=== PATIENT | female | born 1990 | race Caucasian/White ===

== ENCOUNTER 2021-04-03 11:23 | Outpatient (RCR) | payer OTHER, SELFPAY ==
--- NOTE | 2021-04-07 13:54 | PC.NURSE ---
04-03-2021 at [phone] Pt seen as OP for consultation; she and baby seen by Dr. Red on 04-01-2021; mother voicing concerns about slight redness of her breasts, and also some morning pain in both breasts. Pt reports Dr. Red examined baby and also examined mother's breasts and suggested LC consult. Baby born 03-02-2021 at [facility] in [place]; mother has been exclusively breast feeding; milk is is; baby's assessment at DrDahlia visit was all WNL; baby feeding q2-3h and on demand, appropriate number of feeds each day, appropriate output each day. Mother reports baby is sleeping up to 5 hours at night now, and mother is waking with painful breasts, and has noted mild redness under each breast. baby then nurses, cluster feeds in the morning. mother's breasts symmetrical, soft. very mild erythema noted in area mother showed nurse; area soft, non tender. No s/o mastitis. Reviewed s/s of mastitis with mother. Baby nursed eagerly during the visit, both sides, swallowing with each suck; at the end of the feeding, baby did have moderate spit up. Baby was very contented after the feeding. Mother able to latch infant in cross-cradle position; she was shown nose to nipple latch on technique and how to assess for deep latch; baby appeared to latch deeply; however, nurse taught mother how to adjust to even deeper latch and mother reported more comfortable breast feeding; mother's nipples round after nursing on each side. Mother reassured that LC feels baby is nursing very effectively, and also reassured mother that she seems to be experiencing normal changes in her breasts as she gets use to longer intervals between feedings at night. Suggested OK to pump during the night if she is uncomfortable; also to continue frequent feedings in the morning. Mother reports feeling more confident with latch, in that if was more comfortable. Mother encouraged to call again with any questions or concerns. She voiced understanding of all information shared, and verbalized feeling much more confident with latch and feeding baby.
== END 2021-07-02 23:59 | disposition home or self-care (01) ==
LOC: ANHOBOP 11:23
PROVIDERS: Visit Provider Pediatrics
DX: Z39.1 Encounter for care and examination of lactating mother (principal)
CPT/HCPCS: 99212; G0463

== ENCOUNTER 2024-01-18 13:40 | Outpatient (CLI) | payer OTHER, SELFPAY ==
[2024-01-18 14:04] LABS: Hematocrit 35.5 % (37.0-47.0); Hemoglobin 12.4 g/dL (12.0-15.0); Mean Corpuscular HGB Conc 34.9 g/dl (32-36); Mean Corpuscular Hemoglobin 30.6 pg (26-34); Mean Corpuscular Volume 87.7 fl (80-100); Mean Platelet Volume 11.5 fl (7.4-10.4); Platelet Count Result 189 k/mm3 (150-375); Red Blood Count 4.05 M/mm3 (4.2-5.4); Red Cell Distribution Width 13.2 % (11.5-14.5); White Blood Count 7.8 K/mm3 (4.5-10.0)
[2024-01-19 18:22] LABS: Rapid Plasma Reagin Non-Reactive (NonReactive)
== END 2024-01-18 13:41 | disposition home or self-care (01) ==
LOC: ANHLAB 13:42
PROVIDERS: PCP Family Medicine; Visit Provider Obstetrics & Gynecology
DX: Z34.93 Encounter for supervision of normal pregnancy, unspecified, third trimester (principal); Z3A.00 Weeks of gestation of pregnancy not specified
CPT/HCPCS: 36415; 85027; 86592; 86850; 86900; 86901

== ENCOUNTER 2024-01-19 10:05 | Inpatient (IN) | payer OTHER, SELFPAY ==
[2024-01-19] VITALS (54 sets, daily range): BP systolic 94–119; BP diastolic 55–79; PULSE 50–73; RESP 12–18; TEMP 36.1–36.6; O2SAT 93–100; BMI 31.4
[2024-01-19] MEDS: ACETAMINOPHEN 500 MG TABLET 1000 MG PO (10:20)
--- NOTE | 2024-01-19 10:54 | LDADM ---
This patient, Mary Vega, was admitted to Labor/Delivery/Recovery 119 on 01/19/24 at 10:05. Plans for labor, pain management and were discussed with patient. Patient/family oriented to hospital policies and general routines including ID bracelet, bed and alarms, visiting hours, pain management, procedures, bathroom and other care routines, personal items, smoking policy, room service/diet and guest tray routines, infant security routines, and visiting hours. Patient/Family are encouraged to report perceived risks to care and to ask questions if they do not understand what they are told or what they should do. See OBIX for further documentation.
[2024-01-19] MEDS: LACTATED RINGERS 1,000 ML 125 ML IV CONT ×2 (11:03→11:46)
--- NOTE | 2024-01-19 11:41 | PM.IMHP ---
H&P: HPI History of Present Illness Date/Time: 01/19/24 11:41 Chief Complaint: Repeat c section Narrative: 33 y/o at 39 weeks here for scheduled repeat . uncomplicated. GBS neg. Review of Systems Review of Systems: All systems reviewed & are unremarkable except as noted in HPI and below PMFSH Surgical History Surgical History Status post section Family History Family History Father Hypertension Sibling Hypertension Social History Social History Smoking status: Never smoker Second hand tobacco smoke exposure: No Alcohol intake: current Drinks per week: 1 Substance use: never Substance use type: does not use Do You Feel Safe in your Home?: Yes Lack of Transportation: No Lack of Food: Never True Current Housing: I Have Housing Concerned About Future Housing: No Difficulty Paying Gas/Electric Bills: No Difficulty Paying for Meds: No Currently Unemployed: No Education: Don't Know Difficulty w/ Childcare or Family Care: No Living arrangements: with family Occupation/Education: occupation Gender identity (if verbalized by the patient): Female Sexual Orientation (if Verbalized by the Patient): Straight or Heterosexual Spiritual care concerns: No Meds Home Medications and Allergies Home Medications Medication Instructions Recorded Confirmed Type prenat.vits,klaudia,dqi-elvj-qfgmx 1 tablet PO DAILY 04/22/21 01/19/24 History valacyclovir 1 gram tablet 1,000 mg PO Q12H #14 tabs 10/26/21 01/19/24 Rx (Valtrex) Allergies Allergy/AdvReac Type Severity Reaction Status Date / Time No Known Allergies Allergy Verified 12/28/23 13:23 Vital Signs Vital Signs - 24 hr 01/19/24 10:30 01/19/24 10:46 01/19/24 10:53 Pulse Rate 73 70 66 Blood Pressure 107/76 111/57 L 108/70 Oxygen Delivery 01/19/24 11:00 01/19/24 11:15 01/19/24 11:30 Pulse Rate 64 61 58 L Blood Pressure 110/72 109/79 105/71 Oxygen Delivery 01/19/24 10:51 Pulse Rate Blood Pressure Oxygen Delivery Room Air Exam Const: Orientation/consciousness: patient oriented x3 Other: Well-developed, well-nourished female in no acute distress. Neck: Thyroid: thyroid normal Lymphatic: no lymphadenopathy noted (in neck, axilla or inguinal nodes) Resp: Effort & Inspection: normal respiratory effort Auscultation: clear to auscultation bilaterally Cardio: Rate: regular rate Rhythm: regular rhythm Heart sounds: S1 normal heart sound present and S2 normal heart sound present GI: Other: ABD: Soft, nontender, nondistended, gravid. FHR auscultated. No guarding or rebound tenderness. No hepatosplenomegaly. : General: Yes no CVA tenderness Other: Cervix closed Back/Spine/Pelvis: Back: no CVA tenderness Skin: General skin exam: normal color and no rashes or lesions noted Neuro: General: patient oriented x3 Extrem: Other: Extremities: nontender with no edema Psych: Mental Status: mental status grossly normal Affect: normal affect Assessment and Plan Assessment and plan (1) Term : Code(s): Z34.90 - Encounter for supervision of normal , unspecified, unspecified trimester Status: Acute Assessment and Plan: A: IUP at 39 weeks with prior , desiring repeat. P: Offered repeat . She understands risks of surgery to include risks of anesthesia, risks of pain, infection, bleeding, blood products, thromboembolic phenomena and damage to adjacent structures such as bowel, bladder, ureters, blood vessels and nerves. She understands all these risks and elects to proceed with surgery. (2) History of delivery: Code(s): Z98.891 - History of uterine scar from previous surgery Status: Acute
[2024-01-19] MEDS: FAMOTIDINE 20 MG/2 ML VIAL IV PUSH (11:43)
[2024-01-19] MEDS: ONDANSETRON INJ 4 MG/2 ML VIAL IV PUSH (11:43)
[2024-01-19 11:46] LABS: HIV 1/2 Ab P24 Ag Result Negative (Negative)
--- NOTE | 2024-01-19 11:48 | WPDANESEPPF ---
Anes - Initial Pre Proc Eval Procedure: Operation Date: 01/19/24 12:00 Proposed Procedures p Repeat Section - Kenneth Castillo MD Date/Time: 01/19/24 11:48 Surgeon: Kenneth Castillo MD Pre Op Diagnosis: Patient Data Age: 33 Gender: F Height: 1.63 m Weight: 83 kg Last Vital Signs Pulse 58 L 01/19/24 11:30 BP 105/71 01/19/24 11:30 O2 Del Method Room Air 01/19/24 10:51 Allergies Allergy/AdvReac Type Severity Reaction Status Date / Time No Known Allergies Allergy Verified 12/28/23 13:23 Home Medications Medication Instructions Recorded Confirmed Type prenat.vits,klaudia,czv-lzhk-ugauz 1 tablet PO DAILY 04/22/21 01/19/24 History valacyclovir 1 gram tablet 1,000 mg PO Q12H #14 tabs 10/26/21 01/19/24 Rx (Valtrex) Laboratory Tests 01/19/24 10:28 HIV 1&2 Ab/P24 Ag 4thGn Negative (Negative) Patient hx anesthesia problems: other (Pt had shaking during prev C section w epidural anesthetic. ) Family hx anesthesia problems: none Results Review: All pre-operative results and documents have been reviewed as part of the pre-operative evaluation. [facility] Surgical History Surgical History Status post section Family History Family History Father Hypertension Sibling Hypertension Social History Social History Smoking status: Never smoker Second hand tobacco smoke exposure: No Alcohol intake: current Drinks per week: 1 Substance use: never Substance use type: does not use Do You Feel Safe in your Home?: Yes Lack of Transportation: No Lack of Food: Never True Current Housing: I Have Housing Concerned About Future Housing: No Difficulty Paying Gas/Electric Bills: No Difficulty Paying for Meds: No Currently Unemployed: No Education: Don't Know Difficulty w/ Childcare or Family Care: No Living arrangements: with family Occupation/Education: occupation Gender identity (if verbalized by the patient): Female Sexual Orientation (if Verbalized by the Patient): Straight or Heterosexual Spiritual care concerns: No Anes - Eval Final PreProcedure Day of Procedure 01/19/24 11:48 Patient weight: normal Heart: regular rate and rhythm Lungs: clear to auscultation Airway: Mallampati scale class II Neurological: alert and oriented Last oral intake: >/= 8 hours ASA classification: II Emergent: no Anesthetic plan: proceed Anesthesia type and monitoring: regional spinal and standard monitoring Results Review: All pre-operative results and documents have been reviewed as part of the pre-operative evaluation. Informed Consent: The patient's anesthetic plan and its attendant risks and benefits were discussed with the patient/family/POA. Questions were solicited and answers provided to the satisfaction of the patient/family/POA.
--- NOTE | 2024-01-19 11:52 | WPDHPUPDATE1 ---
History and Physical Update Update Date/Time: 01/19/24 11:52 History and Physical has been reviewed, including an updated exam of the patient. There are NO changes in the patient's condition. Risks, benefits, and alternatives have been discussed and questions answered. Patient agrees to proceed with procedure.
[2024-01-19] MEDS: ceFAZolin 2 GM/D5W 50 ML 2 GM/50 ML BAG IVPB (11:58)
--- NOTE | 2024-01-19 12:52 | W.PM.OBCSD ---
OB - Delivery Note Procedure Delivery date: 01/19/24 Pre-op diagnosis: Previous Delivery (1) IUP at 39 weeks; 2) Prior , desires repeat) Post-op Diagnosis: Same Induction method: None Delivery augmentation: Rupture of Membranes Delivery monitor: External FHT and External Uterine Procedure Performed: Repeat Surgeon: Kenneth Castillo MD Anesthesia type: Spinal Description of Procedure/Findings: Findings: Normal-appearing uterus, tubes and ovaries. Techniques: The patient was taken to the operating room where she was prepared and draped in the usual sterile fashion in dorsal supine position with a leftward tilt. She received cefazolin preoperatively. Spinal anesthesia was found to be adequate. A Pfannenstiel skin incision was made along the previous scar line and was carried through to the underlying layer of the fascia. The fascia was incised in the midline and the incision was extended laterally. The fascia was dissected free of the underlying rectus muscles. The rectus muscles were in the midline. The peritoneum was identified, tented up and entered sharply. The peritoneal incision was extended superiorly and inferiorly with good visualization of the bladder. The bladder blade was placed. The vesicouterine peritoneum was identified, tented up and entered sharply. The incision was extended laterally and the bladder flap was developed. The bladder blade was replaced. The uterus was then incised sharply in a transverse fashion along the lower uterine segment. The incision was extended laterally. The infant's head was delivered atraumatically to the sterile field, followed by the body. The nose and mouth were bulb suctioned. After a delay, the cord was clamped and cut. The infant was handed off the field. Cord blood was collected. The placenta was removed manually and was passed off the field. The uterus was exteriorized and cleared of all clots and debris. The uterine incision was reapproximated using 0 Monocryl in a running, locked fashion. A second, imbricating layer of the same suture was run. Excellent hemostasis resulted as did excellent reapproximation of the normal anatomy. The uterus was returned the abdomen. The pelvis was irrigated copiously with warmed normal saline. Rigorous hemostasis was assured. The fascial layer was reapproximated using 0 Vicryl in a running fashion. The skin was closed with a running, subcuticular stitch of 4 0 Vicryl. Dermaflex was applied externally. Sponge, lap, needle and instrument counts were correct. The patient was taken to the recovery room in stable condition. The infant went to the nursery in stable condition. I was present and scrubbed the entire procedure. Specimen: Yes (Cord blood) Estimated Blood Loss: 540 Drains: Yes ([place]) Packing: No Pathology: Yes (Cord blood) Complications: None Condition: Stable Disposition: PACU Baby Date of : 01/19/24 Time of : 12:23 Weeks of gestation at delivery: 39 gender: Male Weight (pounds): 7 Weight (ounces): 13 presentation: vertex Placenta delivery description: Manual Removal and Normal Configuration Cord Vessel Description: 3 Vessels and Delayed Cord Clamping score one minute: 8 score five minutes: 9
--- NOTE | 2024-01-19 12:54 | PM.OBDSVD ---
DS: Admitting Diagnosis Discharge Date 01/21/24 <Rosangela Blount MD - Last Filed: 01/21/24 10:08> Admitting Diagnosis IUP at 39 weeks Prior <Kenneth Castillo MD - Last Filed: 01/29/24 09:21> DS: Discharge Diagnosis Discharge Diagnosis (1) delivery delivered: Code(s): O82 - Encounter for delivery without indication <Kenneth Castillo MD - Last Filed: 01/29/24 09:21> Status: Acute <Kenneth Castillo MD - Last Filed: 01/29/24 09:21> OB - DS: Summary OB Procedures : NST <Kenneth Castillo MD - Last Filed: 01/29/24 09:21> OB Procedures Intrapartum: <Kenneth Castillo MD - Last Filed: 01/29/24 09:21> OB Procedures: : None <Kenneth Castillo MD - Last Filed: 01/29/24 09:21> Peripartum Data Procedures: Procedures Operation Date: 01/19/24 12:00 <No data on this case meets the specified criteria> <Kenneth Castillo MD - Last Filed: 01/29/24 09:21> Time Spent with Patient Time attestation: Total time spent providing and/or coordinating discharge services: <Kenneth Castillo MD - Last Filed: 01/29/24 09:21> DS: Data Data Completed and Pending Labs on day of discharge: Labs from last 24 hours 01/19/24 10:28 HIV 1&2 Ab/P24 Ag 4thGn Negative <Kenneth Castillo MD - Last Filed: 01/29/24 09:21> Discharge Plan Discharge Attending physician on discharge: Kenneth Castillo <Kenneth Castillo MD - Last Filed: 01/29/24 09:21> Kenneth Castillo <Rosangela Blount MD - Last Filed: 01/21/24 10:08> Consulting providers: Rosangela Blount; Jasmine Dickson; Justus Ashley <Kenneth Castillo MD - Last Filed: 01/29/24 09:21> Discharging Clinician: Kenneth Castillo <Kenneth Castillo MD - Last Filed: 01/29/24 09:21> Kenneth Castillo <Rosangela Blount MD - Last Filed: 01/21/24 10:08> Patient Disposition: Home, Self-Care <Kenneth Castillo MD - Last Filed: 01/29/24 09:21> Activity: may shower, may drive after 2 weeks and pelvic rest <Kenneth Castillo MD - Last Filed: 01/29/24 09:21> may shower, may drive after 2 weeks and pelvic rest <Rosangela Blount MD - Last Filed: 01/21/24 10:08> Diet: regular <Kenneth Castillo MD - Last Filed: 01/29/24 09:21> regular <Rosangela Blount MD - Last Filed: 01/21/24 10:08> Wound Care Instructions: incision open to air <Kenneth Castillo MD - Last Filed: 01/29/24 09:21> incision open to air <Rosangela Blount MD - Last Filed: 01/21/24 10:08> Discharge Instructions: Education: Mom and Baby Guide Given to: Mother Follow-Up: Call your delivering provider's office for an appointment to be seen in: 4 Weeks Mom and baby should come to the [facility] for the follow-up appointment. Appointment Date/Time: January 23, 2024 at 11:00 am What to expect at your follow-up visit: Physical Assessment Call [phone] if you are unable to keep your appointment time. BREAST CARE: * Wear a snug supportive bra. * For engorgement discomfort: Breast Feeding: * Apply warm moist washcloths * Express milk as needed to relieve engorgement * Wear loose clothing Bottle Feeding: * May apply ice packs * For sore nipples: * Identify correct latch-on * Apply warm moist washcloths before and after nursing * Air dry nipples after nursing * May apply Lansinoh cream to nipples ABDOMINAL INCISION: (if applicable) * Allow incision to air dry * Do NOT use lotions for powders on your incision * When showering, allow soap and water to run over the incision, but do not wash incision EPISIOTOMY/PERINEAL CARE: * Until bleeding stops, use your valdez bottle after urinating * Change your pad frequently throughout the day * You may take vestaz ba
[2024-01-19] MEDS: OXYTOCIN 30 UNITS/NS 500 ML 30 UNITS/500 ML BAG 125 UNITS IV CONT (13:32)
[2024-01-19] MEDS: fentaNYL CITRATE INJ (*CRX) 100 MCG/2 ML VIAL 25 MCG IV PUSH ×2 (13:44→14:37)
[2024-01-19] MEDS: LIDOCAINE 5% PATCH 1 PATCH TRANSDERM (13:48)
--- NOTE | 2024-01-19 14:01 | PC.NURSE ---
Dr. Castillo called to notify him that this pt has complaints of dizziness. VSS and bleeding is controlled. No new orders at this time. MD aware and will continue to monitor at this time.
--- NOTE | 2024-01-19 16:03 | OBPPTRN ---
1518-Patient transferred to post room #286 via stretcher. Support person present. Oriented to unit, room, information board, rooming in, admission packet and security measures. Patient verbalizes understanding.
[2024-01-19] MEDS: SIMETHICONE 80 MG TAB.CHEW PO (16:13)
[2024-01-19] MEDS: ACETAMINOPHEN 325 MG TABLET 650 MG PO ×2 (16:13→22:05)
[2024-01-19] MEDS: DOCUSATE SODIUM 100 MG CAPSULE PO (16:13)
[2024-01-19] MEDS: KETOROLAC 15 MG/ML VIAL (*BKC) IV PUSH ×2 (16:13→22:06)
[2024-01-19] MEDS: DEXTROSE 5%/0.45% SOD CHL 1,000 ML 125 ML IV CONT ×2 (17:53→23:51)
[2024-01-19 19:47] LABS: Hemoglobin 11.6 g/dL (12.0-15.0)
[2024-01-20] MEDS: ACETAMINOPHEN 325 MG TABLET 650 MG PO ×4 (03:51→22:10)
[2024-01-20] MEDS: KETOROLAC 15 MG/ML VIAL (*BKC) IV PUSH ×2 (03:51→09:39)
[2024-01-20 05:21] LABS: Basophils Percent Auto 0.4 % (0.2-1.2); Eosinophils Absolute Auto 0.1 K/mm3 (0-0.3); Eosinophils Percent Auto 1.3 % (0-4.4); Hematocrit 30.1 % (37.0-47.0); Hemoglobin 10.3 g/dL (12.0-15.0); Immature Granulocyte Absolute 0.04 K/mm3 (0.00-0.031); Immature Granulocyte Percent A 0.5 % (0-0.5); Lymphocytes Absolute Auto 1.53 K/mm3 (0.9-3.2); Lymphocytes Percent Auto 19.4 % (18.3-44.2); Mean Corpuscular HGB Conc 34.2 g/dl (32-36); Mean Corpuscular Hemoglobin 30.9 pg (26-34); Mean Corpuscular Volume 90.4 fl (80-100); Monocytes Absolute Auto 0.6 K/mm3 (0.1-0.6); Neutrophils Absolute Auto 5.6 K/mm3 (1.3-6.7); Neutrophils Percent Auto 71.4 % (45.5-73.1); Platelet Count Result 132 k/mm3 (150-375); Red Blood Count 3.33 M/mm3 (4.2-5.4); Red Cell Distribution Width 13.3 % (11.5-14.5); White Blood Count 7.9 K/mm3 (4.5-10.0)
[2024-01-20 08:15] VITALS: BP 102/67; PULSE 69; RESP 18; TEMP 37.3; O2SAT 98
--- NOTE | 2024-01-20 08:58 | P.PNOB_ITS ---
OB - PN: Subj Subjective Date/time seen: 01/20/24 08:58 Narrative: Pain OK. Tolerating diet. Was a little lightheaded yesterday, but this has resolved. Would like circumcision for son. OB - PN: Obj Data Labs 01/20/24 04:05 Labs: Laboratory Results - last 24 hr 01/19/24 01/19/24 01/20/24 10:28 19:41 04:05 WBC 7.9 RBC 3.33 L Hgb 11.6 L 10.3 L Hct 34.0 L 30.1 L MCV 90.4 MCH 30.9 MCHC 34.2 RDW 13.3 Plt Count 132 L MPV 12.0 H Immature Gran % (Auto) 0.5 Neut % (Auto) 71.4 Lymph % (Auto) 19.4 [place] % (Auto) 7.0 Eos % (Auto) 1.3 Baso % (Auto) 0.4 Lymph # (Auto) 1.53 [place] # (Auto) 0.6 Eos # (Auto) 0.1 Baso # (Auto) 0.0 Abs Immat Gran (auto) 0.04 H Absolute Neuts (auto) 5.6 Absolute Nucleated RBC 0.000 Nucleated RBC % 0.0 HIV 1&2 Ab/P24 Ag 4thGn Negative OB - PN A/P Plan day: 1 Comments: A: POD#1, doing well. P: Routine care. Reviewed circ. Exam Narrative: AVSS I/O OK ABD soft, nontender, fundus firm. Incision c/d/i. EXT nontender
[2024-01-20] MEDS: SIMETHICONE 80 MG TAB.CHEW PO ×3 (09:40→16:15)
[2024-01-20] MEDS: DOCUSATE SODIUM 100 MG CAPSULE PO ×2 (09:41→16:15)
[2024-01-20] MEDS: MULTIVIT/MIN/PREN/FOL AC/IRON TABLET 1 TAB PO (09:41)
[2024-01-20 12:11] VITALS: BP 106/62; PULSE 63; RESP 16; TEMP 36.8; O2SAT 99
--- NOTE | 2024-01-20 12:14 | WPDANLDNPN2 ---
Anes-Prog Note L&D-Neuraxial Date/Time: 01/20/24 12:14 Patient feedback: Patient satisfied with post-operative pain management.
--- NOTE | 2024-01-20 12:15 | WPDANLDPN2 ---
Anes-Prog Note L&D Date/Time: 01/20/24 12:15 Neuro status: Neuro function grossly intact. Cardiovascular status: normal Respiratory status: normal Airway patency: baseline Mental status: baseline Post-Op hydration status: normal Vital Signs: Last Vital Signs Temp 36.8 C 01/20/24 12:11 Pulse 63 01/20/24 12:11 Resp 16 01/20/24 12:11 BP 106/62 01/20/24 12:11 Pulse Ox 99 01/20/24 12:11 O2 Del Method Room Air 01/19/24 16:00 Pain score (VAS): 0 I/O: Intake & Output 01/19/24 01/20/24 01/20/24 23:59 07:59 15:59 Intake Total 745.8 1500 250 Output Total 2300 2050 Balance 745.8 -800 -1800 Post-procedural complaints: none Patient feedback: Patient satisfied with anesthetic care.
--- NOTE | 2024-01-20 14:00 | PC.NURSE ---
Met with mother to assess her needs. Mother just fed for 10 minutes, but he is very sleepy after being circumcised. Mother says the latch feels good, she is a little sore. She breastfed her first baby successfully. She requested lanolin and hydrogel pads. Advised good hand hygiene when using. Mother is going to nap and when is ready to feed again, she will call out for a latch check.
[2024-01-20] MEDS: LIDOCAINE 5% PATCH 1 PATCH TRANSDERM (14:37)
[2024-01-20] MEDS: HYDROcodone/acetaminophen (*CRX) 5-325 MG TABLET 1 TAB PO (14:39)
[2024-01-20] MEDS: IBUPROFEN 600 MG TABLET PO ×2 (16:15→22:10)
[2024-01-20 19:56] VITALS: BP 115/59; PULSE 62; RESP 16; TEMP 36.6; O2SAT 96
[2024-01-21] MEDS: IBUPROFEN 600 MG TABLET PO ×2 (03:50→10:55)
[2024-01-21] MEDS: ACETAMINOPHEN 325 MG TABLET 650 MG PO ×2 (03:50→10:55)
[2024-01-21] MEDS: DOCUSATE SODIUM 100 MG CAPSULE PO (07:51)
[2024-01-21] MEDS: MULTIVIT/MIN/PREN/FOL AC/IRON TABLET 1 TAB PO (07:51)
[2024-01-21] MEDS: SIMETHICONE 80 MG TAB.CHEW PO (07:51)
[2024-01-21 08:00] VITALS: BP 100/61; PULSE 60; RESP 16; TEMP 36.6
--- NOTE | 2024-01-21 10:07 | PM.OBPNVD ---
OB - PN: Subj Subjective Date/time seen: 01/21/24 10:07 Patient comments: no complaints and pain well controlled baby status: doing well OB - PN: Obj Data Labs 01/20/24 04:05 OB - PN A/P Plan day: 2 Plan: routine care and discharge home Time Spent With Patient Time: Total time spent is greater than 50% in coordination of care (as documented) at patient's floor/unit and/or counseling patient: Exam Narrative: inc c/d/i : Bimanual exam- vagina & uterus: other (Uterus firm, nt @U)
[2024-01-23 11:26] VITALS: BP 116/80; PULSE 65; RESP 18; TEMP 36.8; O2SAT 100
== END 2024-01-21 11:37 | disposition home or self-care (01) | DRG 788 ==
LOC: ANHLDR 12:56 → ANHOB2 15:33
PROVIDERS: Admitting Provider Obstetrics & Gynecology; PCP Family Medicine; Visit Provider Obstetrics & Gynecology
PROC: 10D00Z1 Extraction of Products of Conception, Low, Open Approach (ICD-10-PCS; CPT 59514; principal; 2024-01-19 12:00)
DX: O34.211 Maternal care for low transverse scar from previous cesarean delivery (principal); Z37.0 Single live birth; Z3A.39 39 weeks gestation of pregnancy
CPT/HCPCS: 36415; 85014; 85018; 85025; 85027; 86592; 86703; 86850; 86900; 86901; A9270; G0432; J0690; J1885; J2274; J2405; J2590; J3010; J7120